=== PATIENT | female | born 1960 | race Caucasian/White ===

== ENCOUNTER → 2016-11-25 | Outpatient (CLI) | payer BC | LOC: KOH-I 15:20 | DX: M25.571 Pain in right ankle and joints of right foot (principal); W19.XXXA Unspecified fall, initial encounter | CPT/HCPCS: 73610 ==

== ENCOUNTER → 2017-01-20 | Outpatient (CLI) | payer BC | LOC: KOH-I 08:45 | DX: M25.571 Pain in right ankle and joints of right foot (principal); S82.64XA Nondisplaced fracture of lateral malleolus of right fibula, initial encounter for closed fracture; M65.88 Other synovitis and tenosynovitis, other site; M25.471 Effusion, right ankle; M79.89 Other specified soft tissue disorders | CPT/HCPCS: 73721 ==